=== PATIENT | female | born 1995 | race Caucasian/White ===

== ENCOUNTER 2020-05-18 21:24 | Emergency (ER) | payer OTHER ==
[~2020-05-18] VITALS: Ht 157.5 cm; Wt 79.0 kg
--- NOTE | 2020-05-18 21:28 | PHYS DOC ---
Past History Past Medical History: Endometriosis Past Medical History Hx. Eclampsia with last preg. Hx. 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 I just had twins on April 21.. 35 week.. and Tubal Ligation... I may be constipated... but. having a lot of abd. cramping.." "but I ate meat loaf for dinner..and now the pain is really bad..." " No one else go sick from the meat loaf..." Patient is a 24 year old female who presents with above hx with complaints of right upper quadrant and epigastric abdomen, back pain for two days. Patient relates pain in right upper quadrant become much more severe after eating dinner. Patient has rebound to right upper quadrant. There is history of gallbladder disease no family requiring cholecystectomy. No recent travel other than travel from [facility] to [place] to visit. No specific ill contacts. No history of trauma. No history immunosuppression. Patient does have a history of endometriosis,, GERD , recurrent episodes of hematuria and IBS. Review of Systems: Review of Systems: Constitutional: Denies fever or chills Eyes: Denies change in visual acuity HENT: Denies nasal congestion or sore throat Respiratory: Denies cough or shortness of breath Cardiovascular: Denies chest pain or edema GI: Complains of right upper quadrant and epigastric abdominal pain, nausea,. Denies vomiting, bloody stools or diarrhea. History of constipation. : Denies dysuria Musculoskeletal: Denies back pain or joint pain Integument: Denies rash Neurologic: Denies headache, focal weakness or sensory changes Endocrine: Denies polyuria or polydipsia Lymphatic: Denies swollen glands Psychiatric: Denies depression or anxiety Heart Score: HEART Score for Chest Pain: HEART Score for Chest Pain Response (Comments) Value History Slighlty/Non-Suspicious 0 ECG Normal 0 Age < 45 0 Risk Factors 1 or 2 Risk Factors 1 Troponin < Normal Limit 0 Total 1 Risk Factors: Risk Factors: DM, Current or recent (<one month) smoker, HTN, HLP, family history of CAD, obesity. Risk Scores: Score 0 - 3: 2.5% MACE over next 6 weeks - Discharge Home Score 4 - 6: 20.3% MACE over next 6 weeks - Admit for Clinical Observation Score 7 - 10: 72.7% MACE over next 6 weeks - Early Invasive Strategies Family History: Family History: History of gallbladder disease with female members of the family Current Medications: Current Meds: See nursing for home meds Allergies: Allergies: Allergic to penicillins Physical Exam: PE: Constitutional: In acute distress, non-toxic appearance. [] HENT: Normocephalic, atraumatic, bilateral external ears normal, oropharynx moist, no oral exudates, nose normal. [] Eyes: PERRLA, EOMI, conjunctiva normal, no discharge. [] Neck: Normal range of motion, no tenderness, supple, no stridor. [] Cardiovascular: Bradycardia heart rate regular rhythm, no murmur []-monitor shows a sinus bradycardia Lungs & Thorax: Bilateral breath sounds equal at apex on auscultation [] Abdomen: Bowel sounds normal, soft, right upper quadrant and epigastric tenderness, no masses, no pulsatile masses. Recent surgery scars. Distended. Skin: Warm, dry, no erythema, no rash. [] Back: No tenderness, very mild CVA tenderness on percussion Extremities: No tenderness, no cyanosis, no clubbing, ROM intact, no edema. [] No psoas sign Neurologic: Alert and oriented X 3, normal motor function, normal sensory function, no focal deficits noted. [] Psychologic: Affect anxious , judgement normal, mood normal. [] EKG: EKG: My interpretation EKG shows a sinus bradycardia at 55 bpm. No findings acute STEMI with contralateral changes [] Radiology/Procedures: Radiology/Procedures: [address] [address] IMAGING REPORT Signed PATIENT: CHIO RENEE ACCOUNT: [id number] : 1995 LOCATION: ER AGE: 24 SEX: F EXAM STATUS: REG ER ORD. PHYSICIAN: ALYSSIA STANTON MD REASON: upper abd pain,tubal ligation 04/21, swelling around surgical site PROCEDURE: CT ABD PELV W/ORAL&IV CONTRAST EXAM: CT ABDOMEN/PELVIS WITH CONTRAST. HISTORY: Upper abdominal pain, swelling at operative site. TECHNIQUE: Computed tomography of the abdomen and pelvis was performed after the intravenous administration of iodinated contrast. One or more of the following individualized dose reduction techniques were utilized for this examination: 1. Automated exposure control. 2. Adjustment of the mA and/or kV according to patient size. 3. Use of iterative reconstruction technique. COMPARISON: None. FINDINGS: Lung windows through the visualized portions of the bases reveal no abnormality. Bone windows reveal no suspicious lesions. There is focal induration within the subcutaneous fat just inferior and to the right of the umbilicus without a fluid collection. There is no intra-abdominal extension. There is mild gallbladder wall thickening. There is no biliary dilatation. The liver, spleen, pancreas and adrenal glands are unremarkable. There are no pathologically enlarged lymph nodes. There is mild right hydronephrosis. 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 There is mild right urothelial thickening. There are no suspicious renal lesions. The appendix is not inflamed. There is no small bowel obstruction. IMPRESSION: 1. Mild postprocedural or inflammatory changes at the umbilicus. No drainable collection. 2. Mild gallbladder wall thickening. Correlate for volume overload versus acute cholecystitis. 3. Mild right hydronephrosis with urothelial thickening. Correlate with urinalysis to exclude ascending infection. Electronically signed by: Lisa Manzo MD (05/19/2020 12:09 AM) [facility][][address] [place] [id number] IMAGING REPORT Signed PATIENT: CHIO RENEE ACCOUNT: [id number] : 1995 LOCATION: ER AGE: 24 SEX: F EXAM STATUS: REG ER ORD. PHYSICIAN: ALYSSIA STANTON MD REASON: abdomen pain PROCEDURE: ACUTE ABDOMEN SERIES ACUTE ABDOMEN SERIES History: Reason: abdomen pain / Spl. Instructions: / History: Technique: Supine and upright views of the abdomen. Comparison: None. Findings: No consolidation or pleural effusion. Normal heart size. No pneumothorax. No pneumoperitoneum. Minimal small bowel gas. Air and stool scattered throughout the imaged colon. Moderate proximal colonic stool. Impression: 1. Nonobstructed bowel gas pattern. 2. Moderate proximal colonic stool. Electronically signed by: Mushtaq Almeida DO (05/18/2020 11:04 PM) [facility] DICTATED AND SIGNED BY: MUSHTAQ ALMEIDA DO DATE: 05/18/20 2285 CC: ALYSSIA STANTON MD; PCP,NO ~ Course & Med Decision Making: Course & Med Decision Making Pertinent Labs and Imaging studies reviewed. (See chart for details) Discussed options of treatment with pt. Pt. declines admission to night. Wants to go back home to [facility] and follow-up with her primary care. If possible have elective surgery there. Patient to follow-up with her recurrent episodes of hematuria. Patient to stay on a clear fluid diet for the next 2 days. No solids or milk products. Return if any concerns. Impressed upon patient further follow-up needed including possible ultrasound/PIPIDA study of g allbladder. Thought a small possibility that she is having hematuria from kidney stones. She does appear to have a duplication of the right collecting system. Impression: 1. Abdomen Pain 2. Constipation 3. Biliary colic vs Cholecystitis 4. Rt. Mild Hydronephrosis 5. Hx. of Chronic Hematuria. [] Dragon Disclaimer: Dragon Disclaimer: This electronic medical record was generated, in whole or in part, using a voice recognition dictation system. Departure Departure: Disposition: 01 HOME/RESIDENCE PRIOR TO ADM Condition: STABLE Referrals: PCP,NO (PCP) Justification of Admission: Justification of Admission: Justification of Admission Dx: N/A Dragon Disclaimer This chart was dictated in whole or in part using Voice Recognition software in a busy, high-work load, and often noisy Emergency Department environment. It may contain unintended and wholly unrecognized errors or omissions. Dragon Disclaimer This chart was dictated in whole or in part using Voice Recognition software in a busy, high-work load, and often noisy Emergency Department environment. It may contain unintended and wholly unrecognized errors or omissions. Dragon Disclaimer This chart was dictated in whole or in part using Voice Recognition software in a busy, high-work load, and often noisy Emergency Department environment. It may contain unintended and wholly unrecognized errors or omissions. ALYSSIA STANTON MD May 18, 2020 21:28
[2020-05-18 22:00] LABS: AMPHETAMINE/METHAMPHETAMINE NEG (NEG); BARBITURATES NEG (NEG); BENZODIAZEPINES NEG (NEG); CANNABINOIDS NEG (NEG); COCAINE NEG (NEG); METHADONE NEG (NEG); OPIATES NEG (NEG); PHENCYCLIDINE NEG (NEG)
[2020-05-18] MEDS ORDERED: MORPHINE SULFATE 10 MG/ML SYRINGE. ONE (22:02)
[2020-05-18 22:10] LABS: BILIRUBIN,URINE NEG (NEG); CLARITY,URINE HAZY; COLOR,URINE YELLOW; GLUCOSE,URINE NEG (NEG)
[2020-05-18 22:11] LABS: BACTERIA,URINE MOD /HPF (0-FEW); NITRITE,URINE NEG (NEG); SQUAMOUS EPITHELIAL CELL,UR MOD /LPF; UROBILINOGEN,URINE 0.2 mg/dL (0.2 mg/dL)
[2020-05-18] MEDS ORDERED: IV RINGERS SOLUTION,LACTATED 1,000 ML IV SCH (22:11)
[2020-05-18] MEDS ORDERED: IOHEXOL 240 MG/ML 50ML VIAL. ONE (22:23)
[2020-05-18 22:29] LABS: BASO % 1 % (0-3); EOS # 0.1 x10^3/uL (0.0-0.7); EOS % 2 % (0-3); HEMATOCRIT 38.3 % (36.0-47.0); HEMOGLOBIN 12.6 g/dL (12.0-15.5); LYMPH # 2.2 x10^3/uL (1.0-4.8); LYMPH % 37 % (24-48); MEAN CORPUSCULAR HEMOGLOBIN 28 pg (25-35); MEAN CORPUSCULAR HGB CONC 33 g/dL (31-37); MEAN CORPUSCULAR VOLUME 86 fL (79-100); MONO # 0.3 x10^3/uL (0.0-1.1); MONO % 5 % (0-9); NEUT # 3.3 x10^3uL (1.8-7.7); NEUT % 56 % (31-73); PLATELET COUNT 222 x10^3/uL (140-400); RED BLOOD COUNT 4.45 x10^6/uL (3.50-5.40); RED CELL DISTRIBUTION WIDTH 18.6 % (11.5-14.5); WHITE BLOOD COUNT 5.9 x10^3/uL (4.0-11.0)
[2020-05-18 22:35] LABS: CALCIUM 9.3 mg/dL (8.5-10.1); CREATININE 0.9 mg/dL (0.6-1.0); GFR 77.6; POTASSIUM 3.6 mmol/L (3.5-5.1)
[2020-05-18 22:43] LABS: ALBUMIN 3.9 g/dL (3.4-5.0); DIRECT BILIRUBIN 0.1 mg/dL (0.0-0.2); TOTAL BILIRUBIN 0.3 mg/dL (0.2-1.0); TOTAL PROTEIN 7.6 g/dL (6.4-8.2)
--- NOTE | 2020-05-18 22:43 | EKG ---
[address] [address] Test Date: 2020-05-18 Test Time: 22:29:01 Pat Name: CHIO RENEE Department: Room: Gender: F Insulation Professional: : 1995 Requested By: ALYSSIA STANTON Order Number: [id number] Reading MD: Measurements Intervals [place] Rate: 55 P: 49 FL: 138 QRS: 49 QRSD: 86 T: 28 QT: 414 QTc: 398 Interpretive Statements SINUS RHYTHM NORMAL ECG RI6.02 No previous ECG available for comparison
[2020-05-18] MEDS ORDERED: MAGNESIUM HYDROXIDE 2,400 MG/30 ML ORAL.SUSP. PO ONE (22:45)
[2020-05-18] MEDS ORDERED: ONDANSETRON PF 4 MG/2 ML VIAL. IVP ONE (22:45)
[2020-05-18] MEDS ORDERED: FAMOTIDINE 20 MG/2 ML VIAL IVP ONE (22:45)
[2020-05-18] MEDS ORDERED: CONTRAST GIVEN MC PRN (22:45)
[2020-05-18] MEDS ORDERED: MORPHINE SULFATE 10 MG/ML SYRINGE. SQ ONE (22:45)
[2020-05-18] MEDS ORDERED: IOHEXOL 240 MG/ML 50ML VIAL. PO ONE (23:00)
[2020-05-18] MEDS ORDERED: IOHEXOL 300 MG/ML 75 ML VIAL. IV ONE (23:00)
--- NOTE | 2020-05-18 23:07 | RAD ---
ACUTE ABDOMEN SERIES History: Reason: abdomen pain / Spl. Instructions: / History: Technique: Supine and upright views of the abdomen. Comparison: None. Findings: No consolidation or pleural effusion. Normal heart size. No pneumothorax. No pneumoperitoneum. Minimal small bowel gas. Air and stool scattered throughout the imaged colon. Moderate proximal colonic stool. Impression: 1. Nonobstructed bowel gas pattern. 2. Moderate proximal colonic stool. Electronically signed by: Mushtaq Almeida DO (05/18/2020 11:04 PM) [facility]
--- NOTE | 2020-05-19 00:12 | RAD ---
EXAM: CT ABDOMEN/PELVIS WITH CONTRAST. HISTORY: Upper abdominal pain, swelling at operative site. TECHNIQUE: Computed tomography of the abdomen and pelvis was performed after the intravenous administration of iodinated contrast. One or more of the following individualized dose reduction techniques were utilized for this examination: 1. Automated exposure control. 2. Adjustment of the mA and/or kV according to patient size. 3. Use of iterative reconstruction technique. COMPARISON: None. FINDINGS: Lung windows through the visualized portions of the bases reveal no abnormality. Bone windows reveal no suspicious lesions. There is focal induration within the subcutaneous fat just inferior and to the right of the umbilicus without a fluid collection. There is no intra-abdominal extension. There is mild gallbladder wall thickening. There is no biliary dilatation. The liver, spleen, pancreas and adrenal glands are unremarkable. There are no pathologically enlarged lymph nodes. There is mild right hydronephrosis. 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 There is mild right urothelial thickening. There are no suspicious renal lesions. The appendix is not inflamed. There is no small bowel obstruction. IMPRESSION: 1. Mild postprocedural or inflammatory changes at the umbilicus. No drainable collection. 2. Mild gallbladder wall thickening. Correlate for volume overload versus acute cholecystitis. 3. Mild right hydronephrosis with urothelial thickening. Correlate with urinalysis to exclude ascending infection. Electronically signed by: Lisa Manzo MD (05/19/2020 12:09 AM) [facility]
[2020-05-19 00:40] VITALS: BP 131/80
== END 2020-05-19 00:45 | disposition home or self-care (01) ==
LOC: ER 21:24
DX: O90.89 Other complications of the puerperium, not elsewhere classified (principal); K59.00 Constipation, unspecified; N13.30 Unspecified hydronephrosis; Z90.49 Acquired absence of other specified parts of digestive tract; Z98.890 Other specified postprocedural states; Z88.0 Allergy status to penicillin
CPT/HCPCS: 36415; 74022; 74177; 80048; 80076; 80307; 81001; 82150; 83690; 84484; 85025; 85610; 85730; 87086; 93005; 96361; 96372; 96374; 96375; 99285; J2270; J2405; J3490; J7120; Q9966; Q9967